=== PATIENT | female | born 1980 | race Caucasian/White ===

== ENCOUNTER 2021-04-16 06:40 | Emergency (ER) | payer BC, OTHER ==
[~2021-04-16] VITALS: Ht 175.3 cm; Wt 113.4 kg
[2021-04-16 06:45] VITALS: BP 149/98
--- NOTE | 2021-04-16 07:39 | NUR ---
Patient ambulated with slow steady gait to bed 4.
--- NOTE | 2021-04-16 08:11 | NUR ---
40/F BIB SELF S/P FALL. PATIENT STATES SHE TOOK A MISSTEP ON HER STAIRS AT HOME THIS MORNING AT 6AM AND TWISTED HER ANKLE, FALLING ON BOTH KNEES AND HITTING THE RIGHT SIDE OF HER FACE ON THE STAIR RAIL. PATIENT REPORTS 7/10 FACIAL PAIN AND BILATERAL KNEES AND LEFT ANKLE. REPORTS TAKING TYLENOL WITH SOME RELIEF, PATIENT ABLE TO AMBULATE WITHOUT ASSISTANCE. BUMP NOTED TO RIGHT FOREHEAD, DENIES DIZZINESS, BLURRED VISION, PATIENT ALERT AND ORIENTED X4 SPEAKING IN FULL CLEAR SENTENCES.
[2021-04-16] MEDS ORDERED: NAPR-54 PO (08:18)
[2021-04-16 08:38] VITALS: BP 149/98
--- NOTE | 2021-04-16 08:38 | NUR ---
Patient discharged with v/s stable. Written and verbal after care instructions given and explained ABOUT ANKLE SPRAIN, CONTUSION AND HEAD INJURY. Patient alert, oriented and verbalized understanding of instructions. Ambulatory with steady gait WITH CRUTCHES. All questions addressed prior to discharge. ID band removed. Patient advised to follow up with PMD. Rx of NAPROSYN given. Patient educated on indication of medication including possible reaction and side effects. Opportunity to ask questions provided and answered.
== END 2021-04-16 08:38 | disposition home or self-care (01) ==
LOC: MED 06:40
DX: S93.402A Sprain of unspecified ligament of left ankle, initial encounter (principal); S80.01XA Contusion of right knee, initial encounter; S80.02XA Contusion of left knee, initial encounter; S09.93XA Unspecified injury of face, initial encounter; W19.XXXA Unspecified fall, initial encounter; Y93.89 Activity, other specified; Y92.89 Other specified places as the place of occurrence of the external cause; Y99.8 Other external cause status
CPT/HCPCS: 29515; 73562; 73610; 99284